=== PATIENT | male | born 1975 | race Asian ===

== ENCOUNTER 2018-03-26 17:16 | Emergency (ER) | payer OTHER ==
[~2018-03-26] VITALS: Ht 165.1 cm; Wt 47.6 kg
--- OUTSIDE RECORDS SUMMARY | 2018-03-26 17:18 | XMS REPORT | Continuity of Care Document ---
Author Author [facility] Interface Address Unknown Phone Unavailable Problems Problem Status Onset Date Classification Date Reported Comments Source DX: Z71.3=[employer] Active 05/05/2016 [facility] CHRONIC VIRAL HEP B Active 12/22/2015 [facility] Medications Medication Details Route Status Patient Instructions Ordering Provider Order Date Source Allergies, Adverse Reactions, Alerts Substance Category Reaction Severity Reaction type Status Date Reported Comments Source Immunizations Immunization Date Given Site Status Last Updated Comments Source Results Order Name Results Value Reference Range Date Interpretation Comments Source Abdomen complete US Abdomen complete US Patient Name: ALLIE SIMMONS : 1975; Age: 40 years Male MR: [id number] Study: Abdomen complete US 05/09/2016 11:20 AM [employer] CLINICAL INDICATION: hepatitis b ADDITIONAL HISTORY: None COMPARISON: Abdominal ultrasound on 12/31/2015 TECHNIQUE: Grayscale and limited color sonographic evaluation of the abdomen was performed using standard technique. FINDINGS: Liver: The liver demonstrates normal echogenicity and is normal in size, measuring 14 cm. No focal liver lesion identified. Gallbladder: Normal appearance of the gallbladder without evidence of stones, wall thickening, or pericholecystic fluid. Biliary: No intra or extrahepatic biliary ductal dilatation. The common bile duct measures 0.7 cm. Pancreas: Not well visualized. Spleen: The spleen is normal in echogenicity and in size, measuring 9.5 cm. Kidney: The right kidney measures 10.9 cm in length. The left kidney measures 11.8 cm in length. Normal renal echogenicity and contour without evidence of hydronephrosis. Aorta and IVC: The visualized portions are unremarkable. No evidence of free fluid. IMPRESSION: Unremarkable abdominal ultrasound. SL: [id number] 05/09/2016 - - Read by: Adam Rivas MD Dictated Date/time: 05/09/16 13:45 Electronically Signed by: Adam Rivas MD 05/09/16 13:46 FINAL REPORT [facility] Abdomen complete US Abdomen complete US Patient Name: ALLIE HYATT SIMMONS : 1975; Age: 40 years y/o Male MR: [id number] Study: Abdomen complete US 12/31/2015 9:59 AM CDT Ordering Physician: Apurva An MD Clinical Indication: B18.1 Chronic viral hepatitis B without delta-agent; Comparison: None TECHNIQUE: Grayscale and limited color sonographic evaluation of the abdomen was performed with standard technique. FINDINGS: LIVER: The visualized liver shows normal contour, size, and morphology with normal parenchymal echo texture. BILE DUCTS: Common bile duct is top normal at 6 mm. No intrahepatic bile duct dilatation otherwise. GALLBLADDER: There are no gallstones, gallbladder sludge, pericholecystic fluid or wall thickening. PANCREAS: The visualized pancreas appears unremarkable.. SPLEEN: The spleen is unremarkable and measures 9.6 x 3 x 3.7 cm. KIDNEY: The right kidney measures 9.2 x 4.8 x 5.2 cm. The left kidney measures 10.9 x 4.9 x 4.3 cm. No pelvocaliectasis, nephrolithiasis or renal mass lesion identified bilaterally. AORTA AND INFERIOR VENA CAVA: Visualized portions appear unremarkable. ASCITES: There is no abdominal ascites. IMPRESSION: 1. Unremarkable abdominal ultrasound. SL: [id number] 12/31/2015 - - Read by: Cricket Meade MD Dictated Date/time: 12/31/15 10:52 Electronically Signed by: Cricket Meade MD 12/31/15 10:53 FINAL REPORT [facility] Vital Signs Vital Sign Value Date Comments Source Encounters Location Location Details Encounter Type Encounter Number Reason For Visit Attending Provider ADM Date DC Date Status Source [facility] Outpatient [id number] Apurva An 12/31/2015 01/01/2016 [facility] Outpatient [id number] Ari Perez 05/09/2016 05/10/2016 [facility] Procedures Procedure Code Date Perfomer Comments Source
--- OUTSIDE RECORDS SUMMARY | 2018-03-26 17:19 | XMS REPORT | Summary of Care ---
Author Author [facility] Organization [facility] Address Unknown Phone Unavailable Encounter HQ Encntr_alias(FIN) [id number] Date(s): 05/09/16 - 05/09/16 [facility] [address] [place] [address]- [phone] Discharge Disposition: Home or Self Care Attending Physician: Ari Perez MD Referring Physician: Ari Perez MD Vital Signs No data available for this section Problem List No data available for this section Allergies, Adverse Reactions, Alerts No data available for this section Medications No data available for this section Results No data available for this section Immunizations No data available for this section Procedures No data available for this section Social History No data available for this section Assessment and Plan No data available for this section
--- OUTSIDE RECORDS SUMMARY | 2018-03-26 17:19 | XMS REPORT | Summary of Care ---
Author Author [facility] Organization [facility] Address Unknown Phone Unavailable Encounter HQ Encntr_alias(FIN) [id number] Date(s): 12/31/15 - 12/31/15 [facility] [address] [place] [address]- Discharge Disposition: Home or Self Care Attending Physician: Apurva An MD Referring Physician: Apurva An MD Vital Signs No data available for [...]
[2018-03-26] MEDS ORDERED: AUGMENTIN 500-1 EACH PO (18:06)
[2018-03-26] MEDS ORDERED: TETANUS/DIPHTHERIA TOX ADULT 0.5 ML SYR IM ONE (18:15)
== END 2018-03-26 18:45 | disposition home or self-care (01) ==
LOC: ER 17:16
DX: S70.372A Other superficial bite of left thigh, initial encounter (principal); W54.0XXA Bitten by dog, initial encounter; Y99.0 Civilian activity done for income or pay; B19.10 Unspecified viral hepatitis B without hepatic coma
CPT/HCPCS: 90471; 90714; 99283